=== PATIENT | male | born 1970 | race Caucasian/White ===

== ENCOUNTER 2017-05-16 03:31 | Emergency (ER) | payer MEDICAID ==
[2017-05-16 03:38] VITALS: RESP 16; TEMP 98.1; O2SAT 95
[2017-05-16] MEDS ORDERED: LORazepam 2 MG/ML INJ IVP ONE ×2 (03:58→05:54)
[2017-05-16] MEDS ORDERED: NS 1,000 ML IV ONE (03:58)
--- NOTE | 2017-05-16 06:15 | EDPHY ---
H & P Stated Complaint: sent by [facility]; alcohol withdrawal HPI/ROS: HPI The patient presents with concern for alcohol withdrawal. He is had 1 day of progressive tremor and agitation associated with elevated blood pressure. His symptoms started slowly, are only mildly improved with Librium which she is receiving [facility]. His last drink was 2 days ago. He has history of ER visits for alcohol withdrawal requiring Ativan. He has not had any vomiting. REVIEW OF SYSTEMS Constitutional: No fever, no chills. Eyes: No discharge. ENT: No sore throat. Cardiovascular: No chest pain, no palpitations. Respiratory: No cough, no shortness of breath. Gastrointestinal: No abdominal pain, no vomiting. Genitourinary: No hematuria. Musculoskeletal: No back pain. Skin: No rashes. Neurological: No headache. PMHx: Alcoholism with history of alcohol withdrawal Soc Hx: Lives in [place] usually PHYSICAL General Appearance: Alert, no distress Eyes: Pupils equal and round no pallor or injection ENT, Mouth: Mucous membranes moist Respiratory: There are no retractions, lungs are clear to auscultation Cardiovascular: Regular rate and rhythm Gastrointestinal: Abdomen is soft and non-tender, no masses, bowel sounds normal Neurological: A&O, moves all extremities, sign hand tremor is present Skin: Warm and dry, no rashes Musculoskeletal: Neck is supple non tender Extremities: symmetrical, full range of motion Psychiatric: Patient is oriented X 3, there is no agitation Source: Patient Exam Limitations: No limitations - Personal History Current Tetanus/Diphtheria Vaccine: No - Medical/Surgical History Hx Asthma: No Hx Chronic Respiratory Disease: No Hx Diabetes: No Hx Cardiac Disease: No Hx Renal Disease: No Hx Cirrhosis: No Hx Alcoholism: Yes Hx HIV/AIDS: No Hx Splenectomy or Spleen Trauma: No Other PMH: PSHx: denies. PMHx: alcoholism, alcohol withdrawal seizures - Social History Smoking Status: Current every day smoker Constitutional: Initial Vital Signs Temperature (C) 36.7 C 05/16/17 03:34 Heart Rate 86 05/16/17 03:34 Respiratory Rate 16 05/16/17 03:34 Blood Pressure 170/146 H 05/16/17 03:34 O2 Sat (%) 95 05/16/17 03:34 O2 Delivery Mode Room Air Allergies/Adverse Reactions: No Known Allergies Allergy (Unverified 05/16/17 03:34) Home Medications: Medication Instructions Recorded NK [No Known Home Meds] 05/16/17 Medical Decision Making Differential Diagnosis: This is a 46-year-old man with longstanding history of alcohol abuse who presents from the [facility] after using all of his Librium tabs. His last drink was about 1 day ago. On exam, he is hypertensive with mild hand tremor. Differential diagnosis includes alcohol withdrawal, benzodiazepine withdrawal, less likely Parkinson's disease. In the emergency department, the patient was given a L of IV fluid for presumed volume depletion, he required 2 doses of Ativan total before his vital signs normalized and he did not have a tremor. He will be discharged back to the [facility]. He asked for prescription of Ativan instead of Librium and will provide this for him. - Data Points Medications Given: Discontinued Medications Chlordiazepoxide (Librium 25 Mg Prepack#6) 1 btl TAKEHOME EDNOW ONE Stop: 05/16/17 06:25 Last Admin: 05/16/17 06:40 Dose: 1 btl Sodium Chloride (Ns) 1,000 mls @ 0 mls/hr IV EDNOW ONE; Wide Open PRN Reason: Protocol Stop: 05/16/17 03:59 Last Admin: 05/16/17 04:31 Dose: 1,000 mls Lorazepam (Ativan Injection) 1 mg IVP EDNOW ONE Stop: 05/16/17 03:59 Last Admin: 05/16/17 04:32 Dose: 1 mg Lorazepam (Ativan Injection) 1 mg IVP EDNOW ONE Stop: 05/16/17 05:55 Last Admin: 05/16/17 05:57 Dose: 1 mg Lorazepam (Ativan 1 Mg Prepack#4) 1 btl TAKEHOME EDNOW ONE Stop: 05/16/17 06:34 Last Admin: 05/16/17 06:40 Dose: 1 btl Departure - Departure Disposition: Home, Routine, Self-Care Clinical Impression: Alcohol withdrawal Qualifiers: Complication of substance-induced condition: uncomplicated Qualified Code(s): F10.230 - Alcohol dependence with withdrawal, uncomplicated Condition: Good Instructions: Alcohol Withdrawal (ED) Referrals: [facility] [Outside] - As per Instructions
[2017-05-16] MEDS ORDERED: CHLORDIAZEPOXIDE 25MG PREPK#6 BTL TAKEHOME ONE (06:24)
[2017-05-16 06:28] VITALS: BP 155/105; PULSE 87
[2017-05-16] MEDS ORDERED: LORAZEPAM 1 MG PREPACK#4 BTL TAKEHOME ONE ×2 (06:30→06:33)
== END 2017-05-16 06:43 | disposition home or self-care (01) ==
DX: F10.230 Alcohol dependence with withdrawal, uncomplicated (principal); F17.200 Nicotine dependence, unspecified, uncomplicated; E86.9 Volume depletion, unspecified
CPT/HCPCS: 96374; J2060